=== PATIENT | male | born 1950 | race Caucasian/White ===

== ENCOUNTER 2016-10-31 16:04 | Emergency (ER) | payer OTHER, MEDICAID ==
[~2016-10-31] VITALS: Ht 180.3 cm; Wt 59.0 kg
[~2016-10-31 16:04] MED LIST: ALBU8.5H3 INH; ATAZ300C5 PO; CRES10 PO; EPSICOM; MONT10TA21 PO; NORVAIR; PRED20TA PO; RTPRO NEB; TIOT18CA IH; TRAZADONE
[2016-10-31 16:13] VITALS: Ht 180.3 cm; Wt 59.0 kg
[2016-10-31] MEDS ORDERED: ONDANSETRON 4 MG INJ IV STA (16:28)
[2016-10-31] MEDS ORDERED: METHYLPREDNISOLONE 125 MG INJ IV STA (16:28)
[2016-10-31] MEDS ORDERED: SODIUM CHLORIDE 0.9% 1L BAG IV* STA (16:28)
[2016-10-31] MEDS: ALBUTEROL 0.5% (NEB) 2.5 MG/0.5 ML AMP INH STA ×2 (16:45→16:46)
[2016-10-31] MEDS: IPRATROPIUM (NEB) 0.5 MG/2.5 ML AMP INH STA ×2 (16:45→16:46)
--- NOTE | 2016-10-31 16:46 | ERA ---
ER Documentation Chief Complaint Date/Time DATE: 10/31/16 TIME: 16:39 Chief Complaint Pt BIB rescue 839 c/o dizziness x1 week and lack of appetite. Denies pain HPI This is a 66-year-old male with a known history HIV, atrial fibrillation and COPD. The patient's HIV was diagnosed in 2005. He is unaware of his most recent CD4 count but indicates his viral load is 171. He is currently on antiretrovirals. The patient indicates that for the past 7 days he has been experiencing severe dizziness and lightheadedness. He indicates that this is persistent with no alleviating or exacerbating factors. The patient indicates he had decreased oral intake as he had less appetite due to the dizziness. He indicates he attempted to come to the emergency department 3 days ago but decided to leave without being seen as he felt the way time was too long. Given that his symptoms have not improved therefore the patient phone [phone] and immediately came to the emergency department to be further evaluated. He states he had no frequency urgency or dysuria but as stated above has had decreased urinary output. He denies any constipation or diarrhea. He has no hemoptysis hematemesis or melanotic stools. Indicates he normally ambulates with a cane but feels very unsteady in his gait over the past 7 days to the point where he feels as though he is going to pass out but has not had a syncope episode. He denies any shortness of breath at rest or exertion. He has had no fevers no shaking no chills. Denies any recent hospitalizations. He also indicates he is experiencing mild dyspnea consistent with a previous COPD exacerbation and denies a productive or nonproductive cough. He utilizes a nebulizer every 4 hours on a daily basis. ROS All systems reviewed and are negative except as per history of present illness. Medications Home Meds Reported Medications Abacavir* (Abacavir*) 300 Mg Tablet, 300 MG PO DAILY, #60 TAB 10/31/16 [Hydrocortisone 30MG] No Conflict Check, MG PO BID TAKE 30MG-QAM AND 10MG-QPM 10/31/16 Trazodone Hcl* (Trazodone Hcl*) 100 Mg Tablet, 100 MG PO QHS, #30 TAB 10/31/16 Omeprazole* (Omeprazole*) 40 Mg Capsule.dr, 40 MG PO DAILY, #30 CAP 10/31/16 Ibuprofen* (Ibuprofen*) 800 Mg Tablet, 800 MG PO Q6H Y for PAIN, TAB 10/31/16 Salmeterol Xinaf/Fluticasone* (Advair*) 250-50 Diskus Inhaler, 1 INH INHALATION BID, #1 INHALER 10/31/16 Albuterol Sulfate* (Albuterol Sulfate* Neb) 0.083%-3 Ml Neb, 2.5 MG NEB Q4H Y for WHEEZING AND SOB, #30 VIAL 10/31/16 Lorazepam* (Lorazepam*) 1 Mg Tablet, 1 MG PO HS Y for ANXIETY, #30 TAB 10/31/16 Raltegravir Potassium* (Isentress*) 400 Mg Tablet, 800 MG PO DAILY, TAB 10/31/16 Rosuvastatin Calcium* (Crestor*) 10 Mg Tablet, 10 MG PO QHS, #30 TAB 10/31/16 Discontinued Reported Medications Abacavir/Lamivudine (EPZICOM) 1 Tab Tab, 300 MG PO DAILY, TAB 10/31/16 Baclofen* (Baclofen*) 10 Mg Tablet, 10 MG PO TID, TAB 10/31/16 Trazodone Hcl* (Trazodone Hcl*) 50 Mg Tablet, 50 MG PO QHS, #30 TAB 10/31/16 [Norvair] 100 MG No Conflict Check 05/25/12 [Epsicom] 300 MG No Conflict Check 05/25/12 [Trazadone] 150 MG No Conflict Check 05/25/12 Atazanavir Sulfate* (Reyataz*) 300 Mg Capsule, 300 MG PO 05/25/12 Montelukast Sodium* (Singulair*) 10 Mg Tablet, 10 MG PO 05/25/12 Tiotropium [place]* (Spiriva*) 18 Mcg Cap.w.dev, 18 MCG IH 05/25/12 Rosuvastatin Calcium* (Crestor*) 10 Mg Tablet, 10 MG PO 05/25/12 Discontinued Scripts Albuterol Sulfate* (Proair HFA*) 8.5 Gm Hfa.aer.ad, 2 PUFF INH Q4H Y for WHEEZING AND SOB, #1 INHALER Prov:GE GAYLE 02/07/16 Albuterol Sulfate* (Proventil* Neb) 0.083% Neb, 2.5 MG NEB Q4 Y for SHORTNESS OF BREATH, #30 EA Prov:GE GAYLE 02/07/16 Prednisone* (Prednisone*) 20 Mg Tab, 60 MG PO DAILY for 5 Days, TAB Prov:GE GAYLE 02/07/16 Allergies Allergies: Coded Allergies: No Known Allergy (Unverified , 10/31/16) PMhx/Soc History of Surgery: Yes (cataract sx both eyes ) Anesthesia Reaction: No Hx Neurological Disorder: No Hx Respiratory Disorders: Yes (copd, emphysema,bronchitis) Hx Cardiac Disorders: No Hx Psychiatric Problems: No Hx Miscellaneous Medical Probl: Yes (high cholesterol, HIV) Hx Alcohol Use: Yes (less then moderate 7 weeks ago few sips 3x/week, 1 beer) Hx Substance Use: No Hx Tobacco Use: Yes Physical Exam Vitals Vital Signs Date Time Temp Pulse Resp B/P Pulse Ox O2 Delivery O2 Flow Rate FiO2 10/31/16 19:06 84 20 136/75 96 Room Air 10/31/16 17:22 91 20 140/90 100 Room Air 10/31/16 16:50 78 24 98 21 10/31/16 16:13 99.1 88 20 130/80 100 Physical Exam Constitutional:Well-developed. Well-nourished. HEENT:Normocephalic. Atraumatic.Pupils were equal round reactive to light. Very dry mucous membranes.No tonsillar exudates. No conjunctival pallor. Fundoscopy exam showed sharp optic disc bilaterally venous pulsations are present Neck: No nuchal rigidity. No lymphadenopathy. No posterior cervical spine tenderness or step-offs. Respiratory: Not using accessory muscles of respiration.Lungs were clear to auscultation bilaterally. No rhonchi. No rales. Wheezing on end auscultation bilaterally. Cardiovascular: Regular rate regular rhythm.No murmurs. No rubs were appreciated.S1, S2 normal. Distal pulses are palpable 2+ bilaterally. GI: Abdomen was soft. Nontender. Non Distended. No pulsatile abdominal masses or bruits. No rebound. No guarding. Bowel sounds were present and normal. Muscle skeletal: Full range of motion of both the upper and lower extremities bilaterally.Normal muscle tone.No assymetrical calf tenderness or swelling. Homans sign negative bilaterally peer Skin: No petechia, no purpura. No lesions on the palms or the soles of the feet. No maculopapular rash. NEURO: Patient was alert, awake, orientated x3.No facial droop. Gait observed and normal with no ataxia however patient ambulates with a cane.Speech had regular rate and rhythm. No focal neurological deficits. Result Diagram: 10/31/16 1645 10/31/16 1645 Results 24 hrs Laboratory Tests Test 10/31/16 16:45 10/31/16 18:00 White Blood Count 8.710^3/ul Red Blood Count 4.6410^6/ul Hemoglobin 14.8g/dl Hematocrit 43.1% Mean Corpuscular Volume 92.9fl Mean Corpuscular Hemoglobin 31.9pg Mean Corpuscular Hemoglobin Concent 34.3g/dl Red Cell Distribution Width 15.9% Platelet Count 68671^3/UL Mean Platelet Volume 9.8fl Neutrophils % 50.0% Lymphocytes % 34.5% Monocytes % 10.3% Eosinophils % 3.9% Basophils % 0.8% Nucleated Red Blood Cells % 0.0/100WBC Neutrophils # 4.410^3/ul Lymphocytes # 3.010^3/ul Monocytes # 0.910^3/ul Eosinophils # 0.310^3/ul Basophils # 0.110^3/ul Nucleated Red Blood Cells # 0.010^3/ul Prothrombin Time 13.7Sec Prothrombin Time Ratio 1.1 INR International Normalized Ratio 1.05 Activated Partial Thromboplast Time 34.7Sec Sodium Level 142mmol/L Potassium Level 3.7mmol/L Chloride Level 103mmol/L Carbon Dioxide Level 26mmol/L Anion Gap 17 Blood Urea Nitrogen 12mg/dl Creatinine 0.84mg/dl Glucose Level 85mg/dl Lactic Acid Level 1.9mmol/L Calcium Level 10.1mg/dl Total Bilirubin 0.5mg/dl Direct Bilirubin 0.00mg/dl Indirect Bilirubin 0.5mg/dl Aspartate Amino Transf (AST/SGOT) 20IU/L Alanine Aminotransferase (ALT/SGPT) 31IU/L Alkaline Phosphatase 54IU/L Troponin I < 0.012ng/ml Total Protein 7.5g/dl Albumin 4.6g/dl Globulin 2.90g/dl Albumin/Globulin Ratio 1.58 Amylase Level 32U/L Lipase 32U/L Urine Color LT. YELLOW Urine Clarity CLEAR Urine pH 6.5 Urine Specific [place] 1.015 Urine Ketones TRACE Urine Nitrite NEGATIVE Urine Bilirubin NEGATIVE Urine Urobilinogen 0.2 E.U./dL Urine Leukocyte Esterase TRACE Urine Microscopic RBC 2-5/HPF Urine Microscopic WBC 2-5/HPF Urine Mucus FEW Urine Hemoglobin NEGATIVE Urine Glucose NEGATIVE% Urine Total Protein NEGATIVE Current Medications Medications (Trade) Dose Ordered Sig/Jak Route PRN Reason Start Time Stop Time Status Last Admin Dose Admin Sodium Chloride (NS) 1,830 ml BOLUS OVER 2 HOURS STAT IV* 10/31/16 16:28 10/31/16 16:32 DC 10/31/16 16:55 Ondansetron HCl (Zofran Inj) 4 mg ONCE STAT IV 10/31/16 16:28 10/31/16 16:32 DC 10/31/16 16:55 Albuterol (Proventil 0.5% (Neb)) 10 mg ONCE STAT INH 10/31/16 16:28 10/31/16 16:32 DC 10/31/16 16:46 Ipratropium [place] (Atrovent 0.02% (Neb)) 1 mg ONCE STAT INH 10/31/16 16:28 10/31/16 16:32 DC 10/31/16 16:46 Methylprednisolone Sodium Succinate 125 mg 125 mg ONCE STAT IV 10/31/16 16:28 10/31/16 16:32 DC 10/31/16 16:55 Sodium Chloride (NS) 1,000 ml @ 1,000 mls/hr Q1H STAT IV 10/31/16 18:04 10/31/16 19:03 DC Procedures/MDM This patient was seen and evaluated by myself. The patient presented to the emergency department complaining of dizziness. My differential diagnosis included but was not limited to hypovolemia, myocardial infarction, pulmonary embolism, hypoglycemia, hypoxia, anemia, vasovagal episode, hypothyroidism, anxiety, peripheral or central vertigo. The patient was placed on a monitor and storage bin tender, continuous pulse oximetry and IV access established by nursing staff. Orthostatic vital signs were performed and negative. The patient also had wheezing that was thought to be secondary to his COPD exacerbation. The patient received continuous nebulizer treatment, Atrovent was also given 125 mg of Solu-Medrol with significant improvement of the patient 's dyspnea. I did obtain a CT scan of the patient's head which showed no acute intracerebral hemorrhage mass-effect or midline shift. The patient had no evidence of cardiomegaly or infiltrates on the chest radiograph reviewed by myself, one view. 12 Lead EKG tracing ordered and reviewed by myself showed: Normal sinus rhythm of 12 Lead EKG tracing ordered and reviewed by myself showed : Normal sinus rhythm of 79 bpm and no arrhythmia. [place] interval normal. QRS duration normal. No ST segment elevation No ST segment depression. No changes consistent with acute ischemia. Given that the patient has multiple comorbidities with dizziness that had improved but did not completely resolve, I did feel the patient required admission for his near syncope episode. The patient however stated he went to leave AGAINST MEDICAL ADVICE despite me explaining the risks of doing so which could lead to worsening of his condition such as . The patient was a medical capacity to make his own decisions and therefore the patient left AGAINST MEDICAL ADVICE. He was instructed however that he can return to the emergency department any time if there is any worsening of his symptoms Departure Diagnosis: Primary Impression: Dizziness Additional Impression: COPD exacerbation Condition: Serious ERNESTINA MADISON October 31, 2016 16:46
[2016-10-31 16:49] LABS: ADD SCAN DIFF NO
[2016-10-31 16:53] LABS: BASOPHIL # 0.1 10^3/ul (0.0-0.1); BASOPHILS % 0.8 % (0.0-2.0); EOSINOPHILS # 0.3 10^3/ul (0.0-0.5); EOSINOPHILS % 3.9 % (0.0-7.0); HEMATOCRIT 43.1 % (42.0-52.0); HEMOGLOBIN 14.8 g/dl (14.0-18.0); LYMPHOCYTES % 34.5 % (15.0-51.0); MEAN CORPUSCULAR HEMOGLOBIN 31.9 pg (29.0-33.0); MEAN CORPUSCULAR HGB CONC 34.3 g/dl (32.0-37.0); MEAN CORPUSCULAR VOLUME 92.9 fl (82.0-101.0); MEAN PLATELET VOLUME 9.8 fl (7.4-10.4); MONOCYTE # 0.9 10^3/ul (0.3-0.9); MONOCYTES % 10.3 % (0.0-11.0); NEUTROPHIL # 4.4 10^3/ul (1.6-7.5); PLATELET COUNT 321 10^3/UL (140-415); RED BLOOD COUNT 4.64 10^6/ul (4.70-6.10); RED CELL DISTRIBUTION WIDTH 15.9 % (11.5-14.5); WHITE BLOOD COUNT 8.7 10^3/ul (4.8-10.8)
[2016-10-31 17:01] LABS: INR 1.05; PROTIME 13.7 Sec (12.2-14.2); PT RATIO 1.1
[2016-10-31 17:02] LABS: PARTIAL THROMBOPLASTIN TIME 34.7 Sec (25.0-35.0)
[2016-10-31 17:05] LABS: ALBUMIN 4.6 g/dl (3.3-4.9); CHLORIDE 103 mmol/L (97-110)
[2016-10-31 17:06] LABS: POTASSIUM 3.7 mmol/L (3.5-5.1); SODIUM 142 mmol/L (135-144)
[2016-10-31 17:08] LABS: ALBUMIN/GLOBULIN RATIO 1.58; ALKALINE PHOSPHATASE 54 IU/L (42-121); AMYLASE 32 U/L (11-123); ANION GAP 17 (8-16); ASPARTATE AMINO TRANSFERASE 20 IU/L (15-46); BILIRUBIN,INDIRECT 0.5 mg/dl (0-1.1); BILIRUBIN,TOTAL 0.5 mg/dl (0.2-1.3); BLOOD UREA NITROGEN 12 mg/dl (7-20); CALCIUM 10.1 mg/dl (8.4-10.2); CARBON DIOXIDE 26 mmol/L (21-31); CREATININE 0.84 mg/dl (0.61-1.24); GLUCOSE 85 mg/dl (70-220); TOTAL PROTEIN 7.5 g/dl (6.1-8.1)
[2016-10-31 17:09] LABS: ALANINE AMINOTRANSFERASE 31 IU/L (13-69)
--- NOTE | 2016-10-31 17:09 | RADRPT ---
PROCEDURE: XR Chest. CLINICAL INDICATION: Cough. Sepsis. TECHNIQUE: Single frontal view. COMPARISON: 02/07/2016. FINDINGS: The lungs are clear. The heart size is normal. There is calcification in the aorta consistent with atherosclerosis. There is no pleural effusion. There is no pneumothorax. IMPRESSION: 1. Atherosclerosis. 2. Clear lungs. 3. No change from 02/07/2016. RPTAT: QQ .Wale Jha MD, MD Date Time Electronically viewed and signed by .Wale Jha MD, MD on 10/31/2016 17:08 .R/
[2016-10-31 17:23] LABS: TROPONIN-I < 0.012 ng/ml (0.00-0.12)
[2016-10-31] MEDS ORDERED: SOD CHLORIDE 0.9% 1,000 ML IV STA (18:04)
[2016-10-31] MEDS ORDERED: CRES10 PO (18:27)
[2016-10-31] MEDS ORDERED: BACL10TA PO (18:28)
[2016-10-31] MEDS ORDERED: TRAZ50TA18 PO (18:28)
[2016-10-31 18:33] LABS: ADD UMIC YES; URINE BILIRUBIN (Dip) NEGATIVE (NEGATIVE); URINE BLOOD (Dip) NEGATIVE (NEGATIVE); URINE COLOR LT. YELLOW (YELLOW); URINE GLUCOSE (Dip) NEGATIVE (NEGATIVE); URINE KETONES (Dip) TRACE (NEGATIVE); URINE LEUKOCYTE ESTERASE (Dip) TRACE (NEGATIVE); URINE NITRITE (Dip) NEGATIVE (NEGATIVE); URINE TOTAL PROTEIN (Dip) NEGATIVE (NEGATIVE); URINE UROBILINOGEN (Dip) 0.2 E.U./dL (0.1-1.0)
[2016-10-31] MEDS ORDERED: RALT400T4 PO (18:39)
[2016-10-31] MEDS ORDERED: LORA1TAB PO (18:41)
[2016-10-31] MEDS ORDERED: ADV25050 INHALATION (18:42)
[2016-10-31] MEDS ORDERED: ALBU2.5V3 NEB (18:42)
[2016-10-31] MEDS ORDERED: IBUP800T25 PO (18:43)
[2016-10-31] MEDS ORDERED: OMEP40CA6 PO (18:45)
[2016-10-31 18:56] LABS: MUCUS,URINE FEW
[2016-10-31] MEDS ORDERED: TRAZ100T15 PO (19:05)
[2016-10-31 19:06] VITALS: BP 136/75; PULSE 84; RESP 20
[2016-10-31] MEDS ORDERED: EPZI PO (19:06)
[2016-10-31] MEDS ORDERED: HYDROCORTISONE 30 MG PO (19:13)
[2016-10-31] MEDS ORDERED: ABAC300T2 PO (19:18)
--- NOTE | 2016-10-31 19:18 | RADRPT ---
PROCEDURE: CT brain without contrast CLINICAL INDICATION: Possible sepsis, head pain TECHNIQUE: CT of the brain without contrast performed on a multidetector CT scanner, with multiplan ar reformats. One or more of the following dose reduction techniques were used: Automated exposure control, adjustment in mA and / or kV according to patient size, use of iterative reconstructive kareem hnique. CTDIvol = 44 mGy; DLP = 720 mGy-cm. COMPARISON: None available FINDINGS: No acute intracranial hemorrhage is identified. No extra-axial fluid collection is seen. There is no mass effect. No midline shift is identified. Ventricles and sulci are mildly enlarged compatible with volume loss. There are mild areas of hypodensity in the periventricular - deep white matter which are nonspecific but suggestive of chronic small vessel ischemic changes. Jeong-white differentiation is preserved. Atherosclerotic calcifications of the intracranial internal carotid arteries are noted. Osseous structures are unremarkable. Mastoid air cells and imaged paranasal sinuses grossly clear. IMPRESSION: 1. No evidence of acute intracranial pathology. 2. Mild volume loss, with mild chronic small vessel ischemic changes. RPTAT: HESO .Cory Madrid MD, MD Date Time Electronically viewed and signed by .Croy Madrid MD, MD on 10/31/2016 19:18 .O/
== END 2016-10-31 20:17 | disposition left against medical advice (07) ==
LOC: E/R 16:04
DX: R42 Dizziness and giddiness (principal); R40.2252 Coma scale, best verbal response, oriented, at arrival to emergency department; J44.1 Chronic obstructive pulmonary disease with (acute) exacerbation; R40.2142 Coma scale, eyes open, spontaneous, at arrival to emergency department; R40.2362 Coma scale, best motor response, obeys commands, at arrival to emergency department; Z87.891 Personal history of nicotine dependence
CPT/HCPCS: 70450; 71010; 80053; 81001; 82150; 83605; 83690; 84484; 85025; 85610; 85730; 86850; 86900; 86901; 87040; 87086; 93005; 94644; 96374; 96375; 99285; J2405; J2930; J7030; 81003

== ENCOUNTER 2017-05-18 13:17 | Emergency (ER) | payer OTHER, MEDICAID ==
[~2017-05-18] VITALS: Ht 180.3 cm; Wt 57.2 kg
[~2017-05-18 13:17] MED LIST changes: +ABAC300T2 PO; +ADV25050 INHALATION; +ALBU2.5V3 NEB; -ALBU8.5H3 INH; -ATAZ300C5 PO; -EPSICOM; +HYDROCORTISONE 30 MG PO; +IBUP800T25 PO; +LORA1TAB PO; -MONT10TA21 PO; -NORVAIR; +OMEP40CA6 PO; -PRED20TA PO; +RALT400T4 PO; -RTPRO NEB; -TIOT18CA IH; +TRAZ100T15 PO; -TRAZADONE
[2017-05-18 13:20] VITALS: Ht 180.3 cm; Wt 57.2 kg
[2017-05-18] MEDS ORDERED: ASPIRIN 325 MG TAB PO STA (13:24)
[2017-05-18 13:34] VITALS: TEMP 98.4
[2017-05-18 13:49] LABS: BASOPHIL # 0.1 10^3/ul (0.0-0.1); BASOPHILS % 0.6 % (0.0-2.0); EOSINOPHILS # 0.3 10^3/ul (0.0-0.5); EOSINOPHILS % 2.8 % (0.0-7.0); HEMATOCRIT 34.4 % (42.0-52.0); HEMOGLOBIN 11.3 g/dl (14.0-18.0); LYMPHOCYTES # 2.3 10^3/ul (0.8-2.9); MEAN CORPUSCULAR HEMOGLOBIN 31.5 pg (29.0-33.0); MEAN CORPUSCULAR HGB CONC 32.8 g/dl (32.0-37.0); MEAN CORPUSCULAR VOLUME 95.8 fl (82.0-101.0); MEAN PLATELET VOLUME 8.9 fl (7.4-10.4); MONOCYTE # 0.7 10^3/ul (0.3-0.9); NEUTROPHIL # 8.1 10^3/ul (1.6-7.5); NEUTROPHILS % 69.5 % (39.0-77.0); PLATELET COUNT 370 10^3/UL (140-415); RED BLOOD COUNT 3.59 10^6/ul (4.70-6.10); RED CELL DISTRIBUTION WIDTH 15.9 % (11.5-14.5); WHITE BLOOD COUNT 11.6 10^3/ul (4.8-10.8)
--- NOTE | 2017-05-18 13:53 | RADRPT ---
PROCEDURE: XR Chest. CLINICAL INDICATION: Chest pain TECHNIQUE: Single frontal view of the chest was obtained. COMPARISON: CR CHEST 02/07/2016 FINDINGS: The heart is within normal limits. The thoracic aorta is calcified. There is a new mild patchy right lower lobe infiltrate. There is no pleural effusion or pneumothorax. RPTAT: AA IMPRESSION: New mild patchy right lower lobe infiltrate. Calcified aorta consistent with atherosclerotic disease. .Tony Haley MD, MD Date Time Electronically viewed and signed by .Tony Haley MD, MD on 05/18/2017 13:52 .S/
--- NOTE | 2017-05-18 13:53 | ERD ---
ER Documentation Chief Complaint Chief Complaint HPI 67-year-old male presents with shortness of breath going on for about a month now. He is visited multiple emergency rooms in 2 weeks ago had a CAT scan to look for a blood clot but only found pneumonia bilaterally. He has been on multiple antibiotics but he still feels short of breath. He has no chest pain, nausea or vomiting. He has had no fever chills. ROS All systems reviewed and are negative except as per history of present illness. Medications Home Meds Reported Medications Abacavir/Lamivudine (EPZICOM) 1 Tab Tab, 1 TAB PO DAILY, TAB 05/18/17 Hydrocortisone* (Cortef*) 5 Mg Tab, 30 MG PO DAILY, #180 TAB 05/18/17 Trazodone Hcl* (Trazodone Hcl*) 100 Mg Tablet, 100 MG PO QHS, #30 TAB 10/31/16 Omeprazole* (Omeprazole*) 40 Mg Capsule.dr, 40 MG PO DAILY, #30 CAP 10/31/16 Ibuprofen* (Ibuprofen*) 800 Mg Tablet, 800 MG PO Q6H Y for PAIN, TAB 10/31/16 Salmeterol Xinaf/Fluticasone* (Advair*) 250-50 Diskus Inhaler, 1 INH INHALATION BID, #1 INHALER 10/31/16 Albuterol Sulfate* (Albuterol Sulfate* Neb) 0.083%-3 Ml Neb, 2.5 MG NEB Q4H Y for WHEEZING AND SOB, #30 VIAL 10/31/16 Lorazepam* (Lorazepam*) 1 Mg Tablet, 1 MG PO HS Y for ANXIETY, #30 TAB 10/31/16 Raltegravir Potassium* (Isentress*) 400 Mg Tablet, 800 MG PO DAILY, TAB 10/31/16 Rosuvastatin Calcium* (Crestor*) 10 Mg Tablet, 10 MG PO QHS, #30 TAB 10/31/16 Discontinued Reported Medications Abacavir* (Abacavir*) 300 Mg Tablet, 300 MG PO DAILY, #60 TAB 10/31/16 [Hydrocortisone 30MG] No Conflict Check, MG PO BID TAKE 30MG-QAM AND 10MG-QPM 10/31/16 Allergies Allergies: Coded Allergies: No Known Allergy (Unverified , 10/31/16) PMhx/Soc Medical and Surgical Hx: pt denies Medical Hx, pt denies Surgical Hx History of Surgery: Yes (REMOVAL OF MELANOMA) Anesthesia Reaction: No Hx Neurological Disorder: Yes (PINCHED NERVE) Hx Respiratory Disorders: Yes (COPD) Hx Cardiac Disorders: Yes (AFIB) Hx Psychiatric Problems: No Hx Miscellaneous Medical Probl: Yes (HIV (+)) Hx Alcohol Use: No Hx Substance Use: Yes (MEDICAL MARIJUANA OCCASIONAL) Hx Tobacco Use: Yes Smoking Status: Current every day smoker Physical Exam Vitals Vital Signs Date Time Temp Pulse Resp B/P Pulse Ox O2 Delivery O2 Flow Rate FiO2 05/18/17 13:34 98.4 78 20 134/93 100 Room Air 05/18/17 13:20 98.4 78 20 134/93 100 Physical Exam Const: [] No obvious distress. Head: Atraumatic Eyes: Normal Conjunctiva ENT: Normal External Ears, Nose and Mouth. Neck: Full range of motion..~ No meningismus. Resp: Clear to auscultation bilaterally Cardio: Regular rate and rhythm, no murmurs Abd: Soft, non tender, non distended. Normal bowel sounds Skin: No petechiae or rashes Back: No midline or flank tenderness Ext: No cyanosis, or edema Neur: Awake and alert oriented 3, no focal deficits Psych: Mildly anxious Result Diagram: 05/18/17 1330 05/18/17 1330 Results 24 hrs Laboratory Tests Test 05/18/17 13:30 White Blood Count 11.610^3/ul Red Blood Count 3.5910^6/ul Hemoglobin 11.3g/dl Hematocrit 34.4% Mean Corpuscular Volume 95.8fl Mean Corpuscular Hemoglobin 31.5pg Mean Corpuscular Hemoglobin Concent 32.8g/dl Red Cell Distribution Width 15.9% Platelet Count 68931^3/UL Mean Platelet Volume 8.9fl Neutrophils % 69.5% Lymphocytes % 20.0% Monocytes % 6.0% Eosinophils % 2.8% Basophils % 0.6% Nucleated Red Blood Cells % 0.0/100WBC Neutrophils # 8.110^3/ul Lymphocytes # 2.310^3/ul Monocytes # 0.710^3/ul Eosinophils # 0.310^3/ul Basophils # 0.110^3/ul Nucleated Red Blood Cells # 0.010^3/ul Sodium Level 144mmol/L Potassium Level 3.6mmol/L Chloride Level 106mmol/L Carbon Dioxide Level 28mmol/L Anion Gap 14 Blood Urea Nitrogen 9mg/dl Creatinine 0.86mg/dl Glucose Level 96mg/dl Lactic Acid Level 2.6mmol/L Calcium Level 9.1mg/dl Total Bilirubin 0.2mg/dl Direct Bilirubin 0.00mg/dl Indirect Bilirubin 0.2mg/dl Aspartate Amino Transf (AST/SGOT) 20IU/L Alanine Aminotransferase (ALT/SGPT) 19IU/L Alkaline Phosphatase 68IU/L Troponin I < 0.012ng/ml B-Type Natriuretic Peptide 219PG/ML Total Protein 7.0g/dl Albumin 3.7g/dl Lipase 28U/L Current Medications Medications (Trade) Dose Ordered Sig/Jak Route PRN Reason Start Time Stop Time Status Last Admin Dose Admin Aspirin (Aspirin) 325 mg ONCE STAT PO 05/18/17 13:24 05/18/17 13:25 DC Lorazepam 1 mg 1 mg ONCE ONCE IV 05/18/17 14:00 05/18/17 14:01 DC Vancomycin HCl 250 ml @ 125 mls/hr ONCE ONCE IVPB 05/18/17 16:00 05/18/17 17:59 Piperacillin Sod/ Tazobactam Sod (Zosyn 3.375gm/ 50 ml (Pmx)) 50 ml @ 100 mls/hr ONCE STAT IVPB 05/18/17 15:34 05/18/17 16:03 Morphine Sulfate (morphine) 2 mg ONCE STAT IV 05/18/17 15:36 05/18/17 15:40 DC Procedures/MDM With pneumonia and dehydration. Not meet any sepsis criteria. Vital signs remained stable. Visited multiple hospitals already for this problem is going to treat with hospital-acquired pneumonia asked vancomycin and Zosyn. He was given a liter of normal saline as well as placed on oxygen and given Ativan 1 mg he appeared very anxious. He then appeared very happy was alert and oriented and said he wanted to leave because he did have antibiotics they were going to be sent to his house tomorrow he wanted to try them first. Could not talk him into staying anything to us for care. Leaving AMA EKG interpretation: Normal sinus rhythm rate of 80, normal axis, no ST or T- wave changes concerning for acute ischemia, normal EKG. Chest x-ray interpretation: Right lower lobe infiltrate, no pulmonary edema, no widened mediastinum, no pneumothorax, no fractures. Pneumonia on chest x-ray document control supervisor interpretation: Normal sinus rhythm without arrhythmia. Departure Diagnosis: Primary Impression: Healthcare-associated pneumonia Additional Impressions: Dehydration Anemia Condition: HERNANDO Daley DO May 18, 2017 13:53
[2017-05-18] MEDS ORDERED: LORAZEPAM 2 MG INJ IV ONE (14:00)
[2017-05-18 14:08] LABS: ANION GAP 14 (8-16); BLOOD UREA NITROGEN 9 mg/dl (7-20); CALCIUM 9.1 mg/dl (8.4-10.2); CARBON DIOXIDE 28 mmol/L (21-31); CHLORIDE 106 mmol/L (97-110); CREATININE 0.86 mg/dl (0.61-1.24); GLUCOSE 96 mg/dl (70-220); POTASSIUM 3.6 mmol/L (3.5-5.1); SODIUM 144 mmol/L (135-144)
[2017-05-18 14:09] LABS: ALBUMIN 3.7 g/dl (3.3-4.9); BILIRUBIN,INDIRECT 0.2 mg/dl (0-1.1); BILIRUBIN,TOTAL 0.2 mg/dl (0.2-1.3)
[2017-05-18 14:20] LABS: B-TYPE NATRIURETIC PEPTIDE 219 PG/ML (0-125)
[2017-05-18 14:21] LABS: TROPONIN-I < 0.012 ng/ml (0.00-0.12)
[2017-05-18] MEDS ORDERED: HYDR5TAB PO (14:47)
[2017-05-18] MEDS ORDERED: EPZI PO (14:47)
[2017-05-18 15:00] VITALS: BP 133/76; PULSE 68; RESP 16
[2017-05-18] MEDS ORDERED: PIPER-TAZO 3.375 GM IV (PMX) 50 ML IVPB STA (15:34)
[2017-05-18] MEDS ORDERED: morphine 2 MG INJ IV STA (15:36)
[2017-05-18] MEDS ORDERED: VANCOMYCIN 1 GM (PMX) 250 ML IVPB ONE (16:00)
== END 2017-05-18 15:46 | disposition left against medical advice (07) ==
LOC: E/R 13:17
DX: J18.9 Pneumonia, unspecified organism (principal); R40.2252 Coma scale, best verbal response, oriented, at arrival to emergency department; E86.0 Dehydration; D64.9 Anemia, unspecified; J44.9 Chronic obstructive pulmonary disease, unspecified; F17.210 Nicotine dependence, cigarettes, uncomplicated; R40.2142 Coma scale, eyes open, spontaneous, at arrival to emergency department; R40.2362 Coma scale, best motor response, obeys commands, at arrival to emergency department
CPT/HCPCS: 36415; 71010; 80048; 80076; 83605; 83690; 83880; 84484; 85025

== ENCOUNTER 2018-05-18 12:58 | Emergency (ER) | END 2018-05-18 16:46 | disposition home or self-care (01) ==